=== PATIENT | male | born 1990 | race Caucasian/White ===

== ENCOUNTER 2020-07-03 03:25 | Emergency (ER) | payer OTHER ==
[~2020-07-03] VITALS: Ht 165.1 cm; Wt 68.0 kg
[2020-07-03 03:30] VITALS: BP 108/70
--- NOTE | 2020-07-03 03:30 | NUR ---
TO [facility] WITH [facility], FOR PREBOOK
--- NOTE | 2020-07-03 04:00 | NUR ---
SEEN AND EXAMINED BY ESTRELLA.
[2020-07-03 04:10] VITALS: BP 108/70
--- NOTE | 2020-07-03 04:10 | NUR ---
PATIENT BIB [facility]. PATIENT EXAMINED BY DR. GODOY. PATIENT MEDICALLY CLEARED AND RELEASED IN CUSTODY IN STABLE CONDITION. ORIGINAL PRE-BOOK FORM GIVEN TO OFFICER ASMITA.
== END 2020-07-03 04:10 ==
LOC: MED 03:25
DX: Z04.1 Encounter for examination and observation following transport accident (principal); Z02.89 Encounter for other administrative examinations; V49.40XA Driver injured in collision with unspecified motor vehicles in traffic accident, initial encounter; Y93.89 Activity, other specified; Y92.411 Interstate highway as the place of occurrence of the external cause; Y99.8 Other external cause status
CPT/HCPCS: 99283